=== PATIENT | male | born 1955 ===

== ENCOUNTER 2018-08-02 10:29 | Emergency (ER) | payer OTHER ==
[~2018-08-02] VITALS: Ht 167.6 cm; Wt 99.8 kg
[2018-08-02] MEDS ORDERED: KETO10TA2 PO (15:33)
[2018-08-02] MEDS ORDERED: LEVSIN/SL0.125 MG PO (15:33)
== END 2018-08-02 16:37 | disposition home or self-care (01) ==
LOC: ER 10:29
DX: N20.2 Calculus of kidney with calculus of ureter (principal); R10.32 Left lower quadrant pain